=== PATIENT | male | born 1975 | race Caucasian/White ===

== ENCOUNTER 2016-06-13 11:23 | Emergency (ER) | payer OTHER ==
[2016-06-13 11:27] VITALS: BP 121/67; PULSE 111; TEMP 100.4; BMI 24.3
[2016-06-13] MEDS ORDERED: IBUPROFEN 600 MG TABLET (FP) PO ONE ×2 (12:16→12:32)
--- NOTE | 2016-06-13 12:55 | PDOC ---
[id number] 4d JOINT PAIN, COUGH Time Seen by Provider: 06/13/16 11:48 - History of Present Illness Initial Comments: 06/13/16 12:55 CHIEF COMPLAINT: joint pain, cold symptoms HISTORY OF PRESENT ILLNESS: 41 yo M with no PMH presents to ED with fever, chills, cough, and runny nose x 3 weeks. No recent travel or sick contacts. PAST MEDICAL HISTORY: Denies past medical history FAMILY HISTORY: Denies SOCIAL HISTORY: Denies tobacco, alcohol, illicit drug use. SURGICAL HISTORY: Denies ALLERGIES: No known drug allergies REVIEW OF SYSTEMS General/Constitutional: Subjective fever and chills. Denies weakness, weight change. HEENT: Denies change in vision. Denies ear pain or discharge. Denies sore throat. Cardiovascular: Denies chest pain or shortness of breath. Respiratory: Cough x 3 weeks. Denies wheezing, or hemoptysis. Gastrointestinal: Denies nausea, vomiting, diarrhea or constipation. Denies rectal bleeding. Genitourinary: Denies dysuria, frequency, or change in urination. Musculoskeletal: Denies joint or muscle swelling or pain. Denies neck or back pain. Skin and breasts: Denies rash or easy bruising. Neurologic: Denies headache, vertigo, loss of consciousness, or loss of sensation. PHYSICAL EXAM General Appearance: Well-appearing, appropriately dressed. No apparent distress , no intoxication. HEENT: EOMI, PERRLA, normal ENT inspection, normal voice, TMs normal, pharynx normal. No conjunctival pallor. No photophobia, scleral icterus. Neck: Supple. Trachea midline. No tenderness, rigidity, carotid bruit, stridor , lymphadenopathy, or thyromegaly. Respiratory/Chest: Lungs CTAB. Cardiovascular: RRR. S1, S2. Musculoskeletal/Extremities: Normal inspection. FROM of all extremities, normal capillary refill. Pelvis Stable. No CVA tenderness. No tenderness to extremities, pedal edema, swelling, erythema or deformity. Integumentary: Appropriate color, dry, warm. No cyanosis, erythema, jaundice or rash Neurologic: dog sitter II-XII intact. Fully oriented, alert. Appropriate mood/affect. Motor strength 5/5. No appreciable EOM palsy, facial droop or sensory deficit. 07/12/16 16:55 Past History - Past Medical History Allergies/Adverse Reactions: Allergies Allergy/AdvReac Type Severity Reaction Status Date / Time No Known Allergies Allergy Verified 06/13/16 11:27 Home Medications: Ambulatory Orders Clarithromycin [Biaxin] 500 mg PO BID #20 tablet 06/13/16 Ibuprofen 600 mg PO TID PRN #30 tablet 06/13/16 Other medical history: NONE - Surgical History Cholecystectomy: Yes - Immunization History Immunization Up to Date: Yes - Psycho/Social/Smoking Cessation Hx Anxiety: No Suicidal Ideation: No Smoking History: Never smoked Hx Alcohol Use: No Drug/Substance Use Hx: No Substance Use Type: None *Physical Exam - Vital Signs Last Vital Signs Temp Pulse Resp BP Pulse Ox 100.4 F H 111 H 20 121/67 97 06/13/16 11:24 06/13/16 11:24 06/13/16 11:24 06/13/16 11:24 06/13/16 11:24 *DC/Admit/Observation/Transfer Diagnosis at time of Disposition: Upper respiratory infection Qualifiers: URI type: unspecified URI Qualified Code(s): J06.9 - Acute upper respiratory infection, unspecified - Discharge Dispostion Disposition: HOME Condition at time of disposition: Stable Admit: No - Prescriptions Prescriptions: Clarithromycin [Biaxin] 500 mg PO BID #20 tablet Ibuprofen 600 mg PO TID PRN #30 tablet PRN Reason: Fever Or Pain - Referrals Referrals: Ziggy Harper MD [Primary Care Provider] - - Patient Instructions Printed Discharge Instructions: DI for Acute Bronchitis, DI for Viral Upper Respiratory Infection -- Adult Additional Instructions: Please take medications as prescribed. Follow up with Dr. Harper next week if symptoms persist. If you develop any shortness of breath, chest pain, fever unrelieved by Motrin, vomiting, diarrhea, or any new or worsening symptoms, please return to the ER. - Post Discharge Activity Work/School Note: Back to Work
== END 2016-06-13 13:44 | disposition home or self-care (01) ==
LOC: JERFT 11:23
DX: J06.9 Acute upper respiratory infection, unspecified (principal)
CPT/HCPCS: 87804; 99281-25